=== PATIENT | female | born 1950 | race Caucasian/White ===

== ENCOUNTER 2024-09-21 07:45 | Day surgery (SDC) | payer MEDICARE, OTHER, SELFPAY ==
[2024-09-18 12:32] VITALS: BMI 27.8
[2024-09-21] VITALS (13 sets, daily range): BP systolic 111–163; BP diastolic 68–101; PULSE 67–86; RESP 16–26; TEMP 36.1–36.9; O2SAT 93–97; BMI 29.6
[2024-09-21] MEDS: SODIUM CHLORIDE 0.9% 500 ML 500 ML 20 ML IV (10:12)
[2024-09-21] MEDS: DiphenhydrAMINE INJ 50 MG/ML VIAL 25 MG IV (10:18)
[2024-09-21] MEDS: MIDAZOLAM INJ 1 MG/ML VIAL 2 ML (ASD USE ONLY) 2 MG IV (10:20)
[2024-09-21] MEDS: fentaNYL CIT INJ 50 mCg/ML AMP 2ML (ASD USE ONLY) IV (10:20)
[2024-09-21] MEDS: ONDANSETRON INJ 2 MG/ML INJ 2 ML 4 MG IV (10:26)
--- NOTE | 2024-09-21 12:03 | SUR.PHASEII ---
1120 Report rec'd from [facility]. Abd remains soft. No rectal bleeding seen. Pt assisted by with getting dressed. DC instructions given. Both state understanding. Pt meets dc criteria. To home.
== END 2024-09-21 11:32 | disposition home or self-care (01) ==
PROVIDERS: PCP Family Medicine; Referring Provider Specialist; Visit Provider Specialist
PROC: 0DBE8ZX Excision of Large Intestine, Via Natural or Artificial Opening Endoscopic, Diagnostic (ICD-10-PCS; CPT 45380; principal; 2024-09-21 11:30)
DX: Z12.11 Encounter for screening for malignant neoplasm of colon (principal); K57.30 Diverticulosis of large intestine without perforation or abscess without bleeding; K63.5 Polyp of colon; K64.8 Other hemorrhoids
CPT/HCPCS: 45380; 45385; A4649; J1200; J2250; J2405; J3010; J7040